=== PATIENT | female | born 1945 | race Caucasian/White ===

== ENCOUNTER 2016-06-18 08:44 | Inpatient (IN) | payer OTHER ==
[2016-06-18 08:52] VITALS: BMI 27.4
--- NOTE | 2016-06-18 09:24 | PDOC ---
History of Present Illness - General History Source: Patient Exam Limitations: No Limitations - History of Present Illness Initial Comments: 06/18/16 09:53 The patient is a 71 year old female with a significant past medical history of GERD who presents to the ED with cough for 6 months. Patient notes that she has been experiencing a dry cough for 6 months without phlegm without fever or chills. She states that yesterday she was experiencing body aches and pains and reports few episodes of vomiting. She states that the cough worsened yesterday which prompted her to present to the ED. She reports MRI in 12/2015. She denies any fever, chills, diarrhea, headache or abdominal pain. PCP - Dr. Larkin <Sharon Cabral - Last Filed: 06/18/16 12:59> <Francisco Shen - Last Filed: 07/31/16 09:47> - General Chief Complaint: Respiratory Stated Complaint: COUGH, Time Seen by Provider: 06/18/16 09:14 Past History <Sharon Cabral - Last Filed: 06/18/16 12:59> - Psycho/Social/Smoking Cessation Hx Suicidal Ideation: No Smoking History: Never smoked Hx Alcohol Use: Yes (OCCASIOPNAL GLASS OF WINE) Drug/Substance Use Hx: No <Francisco Shen - Last Filed: 07/31/16 09:47> - Past Medical History Allergies/Adverse Reactions: Allergies Allergy/AdvReac Type Severity Reaction Status Date / Time No Known Allergies Allergy Verified 06/18/16 08:51 Home Medications: Ambulatory Orders Diphenhydramine [Benadryl Capsule -] 25 mg PO PRN PRN 06/18/16 Lansoprazole [Prevacid -] 20 mg PO DAILY 06/18/16 Amox-Tr/K Cl [Augmentin 500-125mg Tablet -] 1 tab PO BID@0800,1730 #10 tablet Budesonide/Formeterol Fumarate [SYMBICORT 160/4.5mcg -] 2 puff IH BID #1 inhaler 06/22/16 Ipratropium/Albuterol Sulfate [Combivent Respimat Inhal [place]] 4 gm IH QID #1 aer.w.adap 06/22/16 Polyethylene Glycol 3350 [Miralax 119 gm Btl -] 17 gm PO DAILY bottle 06/22/16 Prednisone [Deltasone -] 40 mg PO DAILY #15 tablet 06/22/16 Review of Systems - Review of Systems Able to Perform ROS?: Yes Comments:: 06/18/16 10:07 GENERAL/CONSTITUTIONAL: No fever or chills. No weakness. HEAD, EYES, EARS, NOSE AND THROAT: No change in vision. No ear pain or discharge. No sore throat. CARDIOVASCULAR: No chest pain or shortness of breath. RESPIRATORY: +cough. No wheezing, or hemoptysis. GASTROINTESTINAL: No nausea, vomiting, diarrhea or constipation. GENITOURINARY: No dysuria, frequency, or change in urination. MUSCULOSKELETAL: No joint or muscle swelling or pain. No neck or back pain. SKIN: No rash NEUROLOGIC: No headache, vertigo, loss of consciousness, or change in strength/ sensation. ENDOCRINE: No increased thirst. No abnormal weight change. HEMATOLOGIC/LYMPHATIC: No anemia, easy bleeding, or history of blood clots. ALLERGIC/IMMUNOLOGIC: No hives or skin allergy. <Sharon Cabral - Last Filed: 06/18/16 12:59> *Physical Exam - Vital Signs Last Vital Signs Temp Pulse Resp BP Pulse Ox 98.2 F 111 H 18 159/92 96 06/18/16 08:48 06/18/16 08:48 06/18/16 08:48 06/18/16 08:48 06/18/16 08:48 - Physical Exam Comments: 06/18/16 10:08 GENERAL: Awake, alert, and fully oriented, in no acute distress HEAD: +left sided facial weakness, unable to smile on the left side of the face.No signs of trauma EYES: PERRLA, EOMI, sclera anicteric, conjunctiva clear ENT: Auricles normal inspection, hearing grossly normal, nares patent, oropharynx clear without exudates. Moist mucosa NECK: Normal ROM, supple, no lymphadenopathy, JVD, or masses LUNGS: Breath sounds equal, clear to auscultation bilaterally. No wheezes, and no crackles HEART: Regular rate and rhythm, normal S1 and S2, no murmurs, rubs or gallops ABDOMEN: Soft, nontender, normoactive bowel sounds. No guarding, no rebound. No masses EXTREMITIES: Normal range of motion, no edema. No clubbing or cyanosis. No cords, erythema, or tenderness NEUROLOGICAL: Cranial nerves VII weakness, cranial nerve II- & VIII-XII are intact. Normal speech, normal gait SKIN: Warm, Dry, normal turgor, no rashes or lesions noted. <Sharon Cabral - Last Filed: 06/18/16 12:59> - Vital Signs Last Vital Signs Temp Pulse Resp BP Pulse Ox 98.2 F 111 H 18 159/92 96 06/18/16 08:48 06/18/16 08:48 06/18/16 08:48 06/18/16 08:48 06/18/16 08:48 <Francisco Shen - Last Filed: 07/31/16 09:47> ED Treatment Course - LABORATORY CBC & Chemistry Diagram: 06/18/16 10:10 06/18/16 10:10 <Sharon Cabral - Last Filed: 06/18/16 12:59> - LABORATORY CBC & Chemistry Diagram: 06/19/16 06:00 06/19/16 06:00 <Francisco Shen - Last Filed: 07/31/16 09:47> Medical Decision Making - Medical Decision Making 06/18/16 09:53 Patient is a 71 year old female with pmhx of GERD who presents with dry cough for [address] scan of the head and neck with contrast, CXR, meds, blood work and IVF. 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 06/18/16 13:00 A call was placed to Dr. Larkin. Awaiting a call back from Dr. Suarez. <Sharon Cabral - Last Filed: 06/18/16 12:59> *DC/Admit/Observation/Transfer - Attestations Scribe Attestion: 06/18/16 09:54 Documentation prepared by JENAE Lozada, acting as medical secretary teacher for Francisco Shen MD/. <Sharon Cabral - Last Filed: 06/18/16 12:59> - Attestations Physician Attestion: 06/18/16 09:24 I, Dr. Francisco Shen, attest that this document has been prepared under my direction and personally reviewed by me in its entirety. I further attest, that it accurately reflects all work, treatment, procedures and medical decision -making performed by me. <Francisco Shen - Last Filed: 07/31/16 09:47> Diagnosis at time of Disposition: Otitis media Qualifiers: Otitis media type: suppurative Laterality: left Chronicity: acute Recurrence: recurrent Spontaneous tympanic membrane rupture: without spontaneous rupture Qualified Code(s): H66.005 - Acute suppurative otitis media without spontaneous rupture of ear drum, recurrent, left ear - Discharge Dispostion Disposition: HOME Condition at time of disposition: Improved - Prescriptions - Referrals
[2016-06-18] MEDS ORDERED: ONDANSETRON *ODT* 4 MG TABLET SL ONE (09:40)
[2016-06-18] MEDS ORDERED: OXYCODONE/APAP 5/325MG COMBO TABLET PO ONE (09:40)
[2016-06-18] MEDS ORDERED: ONDANSETRON *ODT* 4 MG TABLET ONE (10:06)
[2016-06-18] MEDS ORDERED: OXYCODONE/APAP 5/325MG COMBO TABLET ONE (10:06)
[2016-06-18 10:24] LABS: BASOPHIL 0.3 % (0-2.0); EOSINOPHIL 0.6 % (0-4.5); MCH 30.2 pg (25.7-33.7); MCHC 33.4 g/dl (32.0-36.0); MEAN CELL VOLUME 90.6 fl (80-96); MEAN PLT VOLUME 7.6 fl (7.5-11.1); NEUTROPHILS 84.9 % (42.8-82.8); PLATELET COUNT 146 K/MM3 (134-434); RDW 13.5 % (11.6-15.6); WHITE BLOOD COUNT 8.9 K/mm3 (4.0-10.0)
[2016-06-18 10:50] LABS: ALBUMIN 4.1 g/dl (3.4-5.0); ALK PHOS 65 U/L (45-117); ANION GAP 11 (8-16); BILIRUBIN,TOTAL 0.4 mg/dL (0.2-1.0); CALCIUM 8.9 mg/dL (8.5-10.1); CO2 25 mmol/L (21-32); CREATININE 0.8 mg/dL (0.55-1.02); GLUCOSE,RANDOM 121 mg/dL (74-106); SGPT/ALT 25 U/L (12-78); TOT PROT 7.7 g/dl (6.4-8.2)
[2016-06-18 10:51] LABS: SGOT/AST 20 U/L (15-37)
--- NOTE | 2016-06-18 13:37 | HP ---
Admitting History and Physical - Primary Care Physician PCP: Rudy Larkin - Admission History of Present Illness: The patient is a 71 year old female with a significant past medical history of GERD who presents to the ED with cough for 6 months. Patient notes that she has been experiencing a dry cough for 6 months without phlegm without fever or chills. She states that yesterday she was experiencing body aches and pains and reports few episodes of vomiting. She states that the cough worsened yesterday which prompted her to present to the ED. She reports MRI in 12/2015. She denies any fever, chills, diarrhea, headache or abdominal pain. PCP - Dr. Larkin History Source: Patient - Past Medical History Heme/Onc: Yes: Other (acoustic neuroma) - Smoking History Smoking history: Never smoked - Alcohol/Substance Use Hx Alcohol Use: Yes (OCCASIOPNAL GLASS OF WINE) Home Medications - Allergies Allergies/Adverse Reactions: Allergies Allergy/AdvReac Type Severity Reaction Status Date / Time No Known Allergies Allergy Verified 06/18/16 08:51 - Home Medications Home Medications: Ambulatory Orders Diphenhydramine [Benadryl -] 25 mg PO PRN PRN 06/18/16 Lansoprazole [Prevacid -] 20 mg PO DAILY 06/18/16 Physical Examination Vital Signs: Vital Signs Temperature 98.2 F 06/18/16 08:48 Pulse Rate 87 06/18/16 12:48 Respiratory Rate 19 06/18/16 12:48 Blood Pressure 142/82 06/18/16 12:48 O2 Sat by Pulse Oximetry (%) 96 06/18/16 12:48 Labs: CBC, BMP 06/18/16 10:10 06/18/16 10:10 Imaging - Results Chest X-ray: Report Reviewed (left hepatic lobe lesion left lingular lesion) Cat Scan: Report Reviewed (acoustic neuroma) Problem List - Problems (1) Cough Assessment/Plan: chest ct noted for possible infiltrate will give abx reginaldo silva Code(s): R05 - COUGH (2) Acoustic neuroma Assessment/Plan: has MRI in jan last year asn saw dr Nuñez at [facility] he said that everything is ok per patient and to come back next year Code(s): D33.3 - BENIGN NEOPLASM OF CRANIAL NERVES
[2016-06-18] MEDS ORDERED: cefTRIAXone 1 GM/50 ML BAG (PRE-DOCKED) IVPB ONE (15:17)
[2016-06-18] MEDS ORDERED: CEFTRIAXONE 50 ML ONE (15:44)
[2016-06-18] MEDS ORDERED: AZITHROMYCIN IVPB 500 MG/250 ML D5W PRE-DOCKED IVPB ONE (20:30)
[2016-06-18] MEDS: HEPARIN NA (PORCINE) 5,000 UNITS/ML 1ML VIAL SQ SCH (21:15)
--- NOTE | 2016-06-19 00:19 | EKG ---
Test Reason : Blood Pressure : / mmHG Vent. Rate : 091 BPM Atrial Rate : 091 BPM P-R Int : 114 ms QRS Dur : 086 ms QT Int : 340 ms P-R-T Axes : 009 -02 027 degrees QTc Int : 418 ms NORMAL SINUS RHYTHM CANNOT RULE OUT SEPTAL INFARCT , AGE UNDETERMINED ABNORMAL ECG WHEN COMPARED WITH ECG OF 07-MAR-2000 14:20, SEPTAL INFARCT IS NOW PRESENT Confirmed by MADALYN CHRISTINA, JANKI ([id number]) on 06/19/2016 12:18:54 AM Referred By: Confirmed By:JANKI BERGMAN MD
[2016-06-19] MEDS ORDERED: ACETAMINOPHEN 325 MG TABLET (FP) PO PRN (01:38)
[2016-06-19] MEDS: guaiFENesin 200 MG/10 ML 10 ML UNIT-DOSE CUPS PO PRN ×3 (01:57→22:39)
[2016-06-19 07:59] LABS: BASOPHIL 0.5 % (0-2.0); EOSINOPHIL 0.1 % (0-4.5); MCH 30.3 pg (25.7-33.7); MCHC 33.6 g/dl (32.0-36.0); MEAN CELL VOLUME 90.3 fl (80-96); MEAN PLT VOLUME 9.6 fl (7.5-11.1); NEUTROPHILS 78.8 % (42.8-82.8); PLATELET COUNT 73 K/MM3 (134-434); RDW 13.6 % (11.6-15.6); WHITE BLOOD COUNT 5.6 K/mm3 (4.0-10.0)
[2016-06-19 08:32] LABS: ALBUMIN 3.4 g/dl (3.4-5.0); ANION GAP 11 (8-16); CALCIUM 7.9 mg/dL (8.5-10.1); CO2 28 mmol/L (21-32); GLUCOSE,RANDOM 105 mg/dL (74-106)
[2016-06-19 08:36] LABS: ALK PHOS 47 U/L (45-117); BILIRUBIN,TOTAL 0.3 mg/dL (0.2-1.0); CREATININE 0.9 mg/dL (0.55-1.02); SGOT/AST 30 U/L (15-37); SGPT/ALT 30 U/L (12-78); TOT PROT 6.4 g/dl (6.4-8.2)
[2016-06-19] MEDS: PANTOPRAZOLE 40 MG TABLET (FP) PO SCH (10:09)
[2016-06-19] MEDS: HEPARIN NA (PORCINE) 5,000 UNITS/ML 1ML VIAL SQ SCH ×2 (10:09→22:39)
--- NOTE | 2016-06-19 11:28 | PN ---
Progress Note, Physician History of Present Illness: c/o cough - Current Medication List Current Medications: Active Medications Acetaminophen (Tylenol -) 650 mg PO Q6H PRN PRN Reason: FEVER OR PAIN Last Admin: 06/19/16 01:57 Dose: 650 mg Albuterol/Ipratropium (Duoneb -) 1 amp NEB QIDR [facility] Guaifenesin (Robitussin -) 10 ml PO Q6H PRN PRN Reason: COUGH Last Admin: 06/19/16 09:53 Dose: 10 ml Heparin Sodium (Porcine) (Heparin -) 5,000 unit SQ BID [facility] Last Admin: 06/19/16 10:09 Dose: 5,000 unit Pantoprazole Sodium (Protonix -) 40 mg PO DAILY [facility] Last Admin: 06/19/16 10:09 Dose: 40 mg - Objective Vital Signs: Vital Signs Temperature 98.9 F 06/19/16 06:00 Pulse Rate 85 06/19/16 06:00 Respiratory Rate 20 06/19/16 06:00 Blood Pressure 110/59 06/19/16 06:00 O2 Sat by Pulse Oximetry (%) 94 L 06/19/16 01:00 Cardiovascular: Yes: Regular Rate and Rhythm Respiratory: Yes: Diminished, Rhonchi Gastrointestinal: Yes: Normal Bowel Sounds, Soft Labs: CBC, BMP 06/19/16 06:00 06/19/16 06:00 Problem List - Problems (1) Pneumonia Assessment/Plan: IV ABX NEBS PULM Code(s): J18.9 - PNEUMONIA, UNSPECIFIED ORGANISM (2) Cough Assessment/Plan: NEBS WILL D/W PUL--STEROIDS Code(s): R05 - COUGH
[2016-06-19] MEDS: ALBUTEROL SO4 2.5/IPRATROPIUM 0.5 INH SOL 3 ML VIAL.NEB. NEB SCH ×2 (12:25→17:51)
--- NOTE | 2016-06-19 12:40 | CON.PULM ---
Consult Consult Specialty:: PULMONARY Referred by:: Dr. Larkin Reason for Consultation:: cough - History of Present Illness Chief Complaint: cough History of Present Illness: 71yo female with h/o acoustic neuroma, GERD who presents with worsening cough x 2 days. She has had a nonproductive cough x 6 months and chest tightness. No chest pain or palpitations. No fevers, chills or night sweats. Weight has been stable. No nausea, vomiting or diarrhea. No sick contacts or recent travel. 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 No recent antibiotics or hospitalizations. - History Source History Provided By: Patient Limitations to Obtaining History: No Limitations - Past Medical History Gastrointestinal: Yes: GERD - Past Surgical History Past Surgical History: Yes: None - Alcohol/Substance Use Hx Alcohol Use: Yes (OCCASIOPNAL GLASS OF WINE) - Smoking History Smoking history: Never smoked Home Medications - Allergies Allergies/Adverse Reactions: Allergies Allergy/AdvReac Type Severity Reaction Status Date / Time No Known Allergies Allergy Verified 06/18/16 08:51 - Home Medications Home Medications: Ambulatory Orders Diphenhydramine [Benadryl -] 25 mg PO PRN PRN 06/18/16 Lansoprazole [Prevacid -] 20 mg PO DAILY 06/18/16 Family Disease History - Family Disease History Other Family History: non-contributory Review of Systems - Review of Systems Constitutional: denies: Chills, Fever Eyes: denies: Recent Change in Vision HENT: denies: Nasal Congestion, Throat Pain Neck: denies: Stiffness, Tenderness Cardiovascular: reports: Shortness of Breath (tightness) Respiratory: reports: Cough, SOB. denies: Hemoptysis, Wheezing Gastrointestinal: denies: Abdominal Pain, Nausea, Vomiting Genitourinary: denies: Dysuria, Hematuria Neurological: denies: Dizziness, Headache Physical Exam Vital Sings: Vital Signs Temperature 98.9 F 06/19/16 06:00 Pulse Rate 85 06/19/16 06:00 Respiratory Rate 20 06/19/16 06:00 Blood Pressure 110/59 06/19/16 06:00 O2 Sat by Pulse Oximetry (%) 94 L 06/19/16 01:00 Constitutional: Yes: Calm Eyes: Yes: Conjunctiva Clear, EOM Intact HENT: Yes: Atraumatic, Normocephalic Neck: Yes: Supple, Trachea Midline Cardiovascular: Yes: Pulse Irregular Respiratory: Yes: Regular, Rales (left) ...Clubbing: No Gastrointestinal: Yes: Normal Bowel Sounds, Soft Edema: No Neurological: Yes: Alert, Oriented Labs: CBC, BMP 06/19/16 06:00 06/19/16 06:00 Imaging - Results Cat Scan: Report Reviewed, Image Reviewed (lingular atelectasis vs infiltrate) Problem List - Problems (1) Cough Code(s): R05 - COUGH (2) Pneumonia Code(s): J18.9 - PNEUMONIA, UNSPECIFIED ORGANISM (3) Atelectasis Code(s): J98.11 - ATELECTASIS Assessment/Plan Pneumonia vs Atelectasis Cough - would give a 7 day course of antibiotics - inhaled bronchodilators - incentive spirometry - on empiric steroids - will need outpt f/u of chest imaging in 6-8 weeks - may need inspection bronchoscopy if atelectasis persists - outpt PFTs - outpt f/u (card given) - DVT prophylaxis Thank you for this consult Elier Barrett MD
[2016-06-19] MEDS: methylPREDNISolone NA SUCC 40 MG/1 ML VIAL IVPB SCH ×2 (12:59→18:05)
[2016-06-19] MEDS ORDERED: PT OWN MED DRAWER 7, Y5N ONE (16:14)
[2016-06-19] MEDS: AMOX TR/POT CLAV 500MG/125MG TABLETS (FP) PO SCH (18:05)
[2016-06-20] MEDS: ALBUTEROL SO4 2.5/IPRATROPIUM 0.5 INH SOL 3 ML VIAL.NEB. NEB SCH ×5 (00:15→23:28)
[2016-06-20] MEDS: methylPREDNISolone NA SUCC 40 MG/1 ML VIAL IVPB SCH ×3 (02:40→21:48)
[2016-06-20] MEDS ORDERED: PT OWN MED DRAWER 7, Y5N ONE ×3 (08:27→21:07)
[2016-06-20] MEDS: AMOX TR/POT CLAV 500MG/125MG TABLETS (FP) PO SCH ×2 (08:49→17:35)
[2016-06-20] MEDS: PANTOPRAZOLE 40 MG TABLET (FP) PO SCH (09:05)
[2016-06-20] MEDS: guaiFENesin 200 MG/10 ML 10 ML UNIT-DOSE CUPS PO PRN ×2 (09:05→21:58)
[2016-06-20] MEDS: HEPARIN NA (PORCINE) 5,000 UNITS/ML 1ML VIAL SQ SCH ×2 (09:05→21:48)
--- NOTE | 2016-06-20 10:27 | PN ---
Progress Note, Physician History of Present Illness: c/o cough--IMPROVED WITH IV STEROIDS - Current Medication List Current Medications: Active Medications Acetaminophen (Tylenol -) 650 mg PO Q6H PRN PRN Reason: FEVER OR PAIN Last Admin: 06/19/16 01:57 Dose: 650 mg Albuterol/Ipratropium (Duoneb -) 1 amp NEB QIDR [facility] Last Admin: 06/20/16 06:45 Dose: 1 amp Amoxicillin/Clavulanate Potassium (Augmentin - 500mg Tablet) 1 tab PO BID@0800, 1730 [facility] Last Admin: 06/20/16 08:49 Dose: 1 tab Bisacodyl (Dulcolax -) 10 mg PO ONCE ONE Stop: 06/20/16 10:23 Guaifenesin (Robitussin -) 10 ml PO Q6H PRN PRN Reason: COUGH Last Admin: 06/20/16 09:05 Dose: 10 ml Heparin Sodium (Porcine) (Heparin -) 5,000 unit SQ BID [facility] Last Admin: 06/20/16 09:05 Dose: 5,000 unit Methylprednisolone Sodium Succinate (Solu-Medrol -) 40 mg IVPB Q8H-IV [facility] Last Admin: 06/20/16 09:05 Dose: 40 mg Pantoprazole Sodium (Protonix -) 40 mg PO DAILY [facility] Last Admin: 06/20/16 09:05 Dose: 40 mg Polyethylene Glycol (Miralax (For Daily Use) -) 17 gm PO DAILY [facility] - Objective Vital Signs: Vital Signs Temperature 98.4 F 06/20/16 06:00 Pulse Rate 68 06/20/16 06:00 Respiratory Rate 20 06/20/16 06:00 Blood Pressure 121/66 06/20/16 06:00 O2 Sat by Pulse Oximetry (%) 95 06/20/16 02:00 Cardiovascular: Yes: Regular Rate and Rhythm Respiratory: Yes: Diminished, Rales (AT THE BASES) Gastrointestinal: Yes: Normal Bowel Sounds, Soft Labs: CBC, BMP 06/19/16 06:00 06/19/16 06:00 Problem List - Problems (1) Pneumonia Assessment/Plan: IV ABX NEBS PULM Code(s): J18.9 - PNEUMONIA, UNSPECIFIED ORGANISM (2) Cough Assessment/Plan: NEBS IV STERIODS--TAPER TO BID INCENTIVE SPIROMETRY Code(s): R05 - COUGH (3) Acoustic neuroma Code(s): D33.3 - BENIGN NEOPLASM OF CRANIAL NERVES
[2016-06-20] MEDS ORDERED: BISACODYL 5 MG TABLET.DR (FP) PO ONE (11:00)
--- NOTE | 2016-06-20 13:47 | PN ---
Progress Note (short form) - Note Progress Note: PULMONARY VSS/AFEBRILE ANICTERIC DISTANT BUT CLEAR S1S2 BS+ NO EDEMA LABS/IMAGING/MEDS/NOTES/MICRO REVIEWED (1) Cough Code(s): R05 - COUGH (2) Pneumonia Code(s): J18.9 - PNEUMONIA, UNSPECIFIED ORGANISM (3) Atelectasis Code(s): J98.11 - ATELECTASIS Assessment/Plan - continue course of antibiotics - inhaled bronchodilators - incentive spirometry - on steroids - will need outpt f/u of chest imaging in 6-8 weeks - may need inspection bronchoscopy if atelectasis persists - outpt PFTs - outpt f/u (card given) - DVT prophylaxis Elvia DICKERSON MD
[2016-06-20] MEDS: POLYETHYLENE GLYCOL 3350 119 GM BTL PO SCH (17:36)
[2016-06-20] MEDS: BUDESONIDE/FORMETEROL FUMARATE 160/4.5 mcg INHALER IH SCH (21:48)
[2016-06-21] MEDS: ALBUTEROL SO4 2.5/IPRATROPIUM 0.5 INH SOL 3 ML VIAL.NEB. NEB SCH ×4 (05:29→23:15)
[2016-06-21] MEDS: AMOX TR/POT CLAV 500MG/125MG TABLETS (FP) PO SCH ×2 (08:36→17:53)
[2016-06-21] MEDS: HEPARIN NA (PORCINE) 5,000 UNITS/ML 1ML VIAL SQ SCH ×2 (10:01→21:35)
[2016-06-21] MEDS: PANTOPRAZOLE 40 MG TABLET (FP) PO SCH (10:01)
[2016-06-21] MEDS: BUDESONIDE/FORMETEROL FUMARATE 160/4.5 mcg INHALER IH SCH ×2 (10:02→21:34)
[2016-06-21] MEDS: POLYETHYLENE GLYCOL 3350 119 GM BTL PO SCH (10:02)
[2016-06-21] MEDS: methylPREDNISolone NA SUCC 40 MG/1 ML VIAL IVPB SCH (10:02)
--- NOTE | 2016-06-21 13:06 | PN ---
Progress Note, Physician History of Present Illness: PULMONARY ALERT,FEELING BETTTER,LESS COUGH - Current Medication List Current Medications: Active Medications Acetaminophen (Tylenol -) 650 mg PO Q6H PRN PRN Reason: FEVER OR PAIN Last Admin: 06/19/16 01:57 Dose: 650 mg Albuterol/Ipratropium (Duoneb -) 1 amp NEB QIDR [facility] Last Admin: 06/21/16 11:15 Dose: 1 amp Amoxicillin/Clavulanate Potassium (Augmentin - 500mg Tablet) 1 tab PO BID@0800, 1730 [facility] Last Admin: 06/21/16 08:36 Dose: 1 tab Budesonide/Formoterol Fumarate (Symbicort 160/4.5mcg -) 2 puff IH BID [facility] Last Admin: 06/21/16 10:02 Dose: 2 puff Guaifenesin (Robitussin -) 10 ml PO Q6H PRN PRN Reason: COUGH Last Admin: 06/20/16 21:58 Dose: 10 ml Heparin Sodium (Porcine) (Heparin -) 5,000 unit SQ BID [facility] Last Admin: 06/21/16 10:01 Dose: 5,000 unit Methylprednisolone Sodium Succinate (Solu-Medrol -) 40 mg IVPB BID [facility] Last Admin: 06/21/16 10:02 Dose: 40 mg Pantoprazole Sodium (Protonix -) 40 mg PO DAILY [facility] Last Admin: 06/21/16 10:01 Dose: 40 mg Polyethylene Glycol (Miralax (For Daily Use) -) 17 gm PO DAILY [facility] Last Admin: 06/21/16 10:02 Dose: Not Given - Objective Vital Signs: Vital Signs Temperature 97.5 F L 06/21/16 08:00 Pulse Rate 82 06/21/16 08:00 Respiratory Rate 20 06/21/16 08:00 Blood Pressure 123/88 06/21/16 08:00 O2 Sat by Pulse Oximetry (%) 97 06/20/16 21:00 Constitutional: Yes: Well Nourished, Calm Eyes: Yes: WNL HENT: Yes: WNL Neck: Yes: WNL Cardiovascular: Yes: Regular Rate and Rhythm, S1, S2 Gastrointestinal: Yes: Normal Bowel Sounds, Soft Extremities: Yes: WNL Edema: No Assessment/Plan Problem List - Problems (1) Cough Code(s): R05 - COUGH (2) Pneumonia Code(s): J18.9 - PNEUMONIA, UNSPECIFIED ORGANISM (3) Atelectasis Code(s): J98.11 - ATELECTASIS Assessment/Plan Pneumonia vs Atelectasis Cough - antibiotics - inhaled bronchodilators - incentive spirometry - steroids - outpt f/u of chest imaging in 6-8 weeks - bronchoscopy if atelectasis persists - outpt PFTs - DVT prophylaxis DR VINCENT
--- NOTE | 2016-06-21 15:57 | PN ---
Progress Note, Physician History of Present Illness: c/o cough--IMPROVED WITH IV STEROIDS AND ON OXYGEN - Current Medication List Current Medications: Active Medications Acetaminophen (Tylenol -) 650 mg PO Q6H PRN PRN Reason: FEVER OR PAIN Last Admin: 06/19/16 01:57 Dose: 650 mg Albuterol/Ipratropium (Duoneb -) 1 amp NEB QIDR [facility] Last Admin: 06/21/16 11:15 Dose: 1 amp Amoxicillin/Clavulanate Potassium (Augmentin - 500mg Tablet) 1 tab PO BID@0800, 1730 [facility] Last Admin: 06/21/16 08:36 Dose: 1 tab Budesonide/Formoterol Fumarate (Symbicort 160/4.5mcg -) 2 puff IH BID [facility] Last Admin: 06/21/16 10:02 Dose: 2 puff Guaifenesin (Robitussin -) 10 ml PO Q6H PRN PRN Reason: COUGH Last Admin: 06/20/16 21:58 Dose: 10 ml Heparin Sodium (Porcine) (Heparin -) 5,000 unit SQ BID [facility] Last Admin: 06/21/16 10:01 Dose: 5,000 unit Methylprednisolone Sodium Succinate (Solu-Medrol -) 40 mg IVPB BID [facility] Last Admin: 06/21/16 10:02 Dose: 40 mg Pantoprazole Sodium (Protonix -) 40 mg PO DAILY [facility] Last Admin: 06/21/16 10:01 Dose: 40 mg Polyethylene Glycol (Miralax (For Daily Use) -) 17 gm PO DAILY [facility] Last Admin: 06/21/16 10:02 Dose: Not Given - Objective Vital Signs: Vital Signs Temperature 98.2 F 06/21/16 14:44 Pulse Rate 78 06/21/16 14:44 Respiratory Rate 22 06/21/16 14:44 Blood Pressure 132/69 06/21/16 14:44 O2 Sat by Pulse Oximetry (%) 97 06/20/16 21:00 Cardiovascular: Yes: Regular Rate and Rhythm Respiratory: Yes: Rhonchi Gastrointestinal: Yes: Normal Bowel Sounds, Soft Problem List - Problems (1) Pneumonia Assessment/Plan: IV ABX NEBS PULM Code(s): J18.9 - PNEUMONIA, UNSPECIFIED ORGANISM (2) Cough Assessment/Plan: NEBS IV STERIODS--TAPER TO BID INCENTIVE SPIROMETRY Code(s): R05 - COUGH (3) Acoustic neuroma Code(s): D33.3 - BENIGN NEOPLASM OF CRANIAL NERVES (4) Asthmatic bronchitis Assessment/Plan: IMPROVED CHANGE TO PO PREDNISONE NEBS DC OXYGEN AND CHECK PULSE OX Code(s): J45.909 - UNSPECIFIED ASTHMA, UNCOMPLICATED
[2016-06-21] MEDS: predniSONE 20 MG TABLET (UD) PO SCH (17:52)
[2016-06-21] MEDS: guaiFENesin 200 MG/10 ML 10 ML UNIT-DOSE CUPS PO PRN (21:34)
[2016-06-22] MEDS: ALBUTEROL SO4 2.5/IPRATROPIUM 0.5 INH SOL 3 ML VIAL.NEB. NEB SCH ×2 (06:47→11:38)
[2016-06-22] MEDS: AMOX TR/POT CLAV 500MG/125MG TABLETS (FP) PO SCH (08:43)
[2016-06-22] MEDS: PANTOPRAZOLE 40 MG TABLET (FP) PO SCH (10:17)
[2016-06-22] MEDS: HEPARIN NA (PORCINE) 5,000 UNITS/ML 1ML VIAL SQ SCH (10:17)
[2016-06-22] MEDS: predniSONE 20 MG TABLET (UD) PO SCH (10:17)
[2016-06-22] MEDS: POLYETHYLENE GLYCOL 3350 119 GM BTL PO SCH (10:19)
[2016-06-22] MEDS: BUDESONIDE/FORMETEROL FUMARATE 160/4.5 mcg INHALER IH SCH (10:22)
--- NOTE | 2016-06-22 10:26 | DS ---
Physical Examination Vital Signs: Vital Signs Temperature 98.7 F 06/22/16 07:00 Pulse Rate 93 H 06/22/16 07:00 Respiratory Rate 22 06/22/16 07:00 Blood Pressure 128/66 06/22/16 07:00 O2 Sat by Pulse Oximetry (%) 94 L 06/22/16 09:00 Findings/Remarks: FEELS BETTER O2 SAT 94 Cardiovascular: Yes: Regular Rate and Rhythm Respiratory: Yes: Rhonchi Gastrointestinal: Yes: Normal Bowel Sounds, Soft Discharge Summary Reason For Visit: PNEUMONIA Current Active Problems Acoustic neuroma (Acute) Asthmatic bronchitis (Acute) Atelectasis (Acute) Cough (Acute) Pneumonia (Acute) Hospital Course: - Problems (1) Pneumonia Assessment/Plan: IV ABX NEBS PULM Code(s): J18.9 - PNEUMONIA, UNSPECIFIED ORGANISM (2) Cough Assessment/Plan: NEBS IV STERIODS--TAPER TO BID INCENTIVE SPIROMETRY Code(s): R05 - COUGH (3) Acoustic neuroma Code(s): D33.3 - BENIGN NEOPLASM OF CRANIAL NERVES (4) Asthmatic bronchitis Assessment/Plan: IMPROVED CHANGE TO PO PREDNISONE NEBS DC OXYGEN AND CHECK PULSE OX Code(s): J45.909 - UNSPECIFIED ASTHMA, UNCOMPLICATED - Instructions Referrals: Rudy Larkin MD [Primary Care Provider] - - Home Medications Comprehensive Discharge Medication List: Ambulatory Orders Diphenhydramine [Benadryl -] 25 mg PO PRN PRN 06/18/16 Lansoprazole [Prevacid -] 20 mg PO DAILY 06/18/16
[2016-06-22 11:49] VITALS: BP 128/62; PULSE 84; TEMP 98.4
== END 2016-06-22 14:02 | disposition home or self-care (01) | DRG 194 ==
LOC: JER 08:44 → INTOOBSV 13:29 → JERBED 13:29 → UNDOADMOB 13:29 → JERBED 13:43 → J5S 17:13 → OBSVTOIN 06-19 09:15
PROVIDERS: ADMIT Family Medicine; ATTEND Family Medicine
DX: J18.9 Pneumonia, unspecified organism (principal); J98.11 Atelectasis; D33.3 Benign neoplasm of cranial nerves; K21.9 Gastro-esophageal reflux disease without esophagitis; J45.909 Unspecified asthma, uncomplicated
CPT/HCPCS: 36415; 70470-TC; 70491-TC; 71260-TC; 76705-TC; 80053; 83735; 85025; 85651; 87040; 87254; 87804; 93005; 93010; 94010; 94640; 97116-GP; 97161-GP; 99283-25; G0378; J1644